=== PATIENT | male | born 1985 | race Hispanic/Latino ===

== ENCOUNTER 2024-12-12 18:15 | Emergency (ER) | payer OTHER ==
[~2024-12-12] VITALS: Ht 177.8 cm; Wt 95.7 kg
--- NOTE | 2024-12-12 18:48 | EKG ---
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
[2024-12-12 18:49] LABS: BASOPHILS # (AUTO) 0.06 K/uL (0.00-0.20); BASOPHILS % (AUTO) 0.7 % (0.0-5.0); EOSINOPHILS # (AUTO) 0.15 K/uL (0.00-0.70); EOSINOPHILS % (AUTO) 1.8 % (0.0-8.0); HEMATOCRIT 48.5 % (42-54); IMMATURE GRANULOCYTE ABSOLUTE 0.02 K/uL (0-1); LYMPHOCYTES # (AUTO) 2.1 K/uL (1.0-4.8); LYMPHOCYTES % (AUTO) 24.2 % (21.0-51.0); MEAN CORPUSCULAR HEMOGLOBIN 29.2 pg (27.0-33.0); MEAN CORPUSCULAR HGB CONC 33.6 g/dL (32.0-36.0); MEAN CORPUSCULAR VOLUME 86.8 fL (79-99); MONOCYTES # (AUTO) 0.5 K/uL (0.1-1.0); MONOCYTES % (AUTO) 6.1 % (3.0-13.0); NEUTROPHILS # (AUTO) 5.7 K/uL (1.8-7.7); PLATELET COUNT (AUTO) 322 K/uL (130-400); RED BLOOD CELL COUNT(AUTO) 5.59 MIL/uL (4.50-6.20); RED CELL DISTRIBUTION WIDTH 12.2 % (11.0-15.5); WHITE BLOOD COUNT (AUTO) 8.6 K/uL (4.8-10.8)
--- NOTE | 2024-12-12 18:53 | HMCIMG ---
Exam Type: CHEST 1VW Clinical Information: CHEST PAIN Comparison: None Findings: The lungs are clear of infiltrates. The heart is normal in size. The bony and soft tissue structures of the chest are unremarkable. Impression: Clear lungs.
[2024-12-12 18:55] LABS: APPEARANCE,URINE CLEAR (CLEAR); BILIRUBIN,URINE NEGATIVE (NEGATIVE); COLOR,URINE YELLOW (YELLOW); GLUCOSE, URINE (UA) NEGATIVE (NEGATIVE); KETONES,URINE NEGATIVE (NEGATIVE); LEUKOCYTE ESTERASE ,URINE NEGATIVE Leu/uL (NEGATIVE); NITRATE,URINE NEGATIVE (NEGATIVE); OCCULT BLOOD,URINE NEGATIVE (NEGATIVE); PH,URINE 6.5 (5.0-8.0); PROTEIN,URINE 10 mg/dL (NEGATIVE); UROBILINOGEN,URINE 0.2 mg/dL (0.2-1.0)
[2024-12-12 18:56] LABS: ADD UA MICROSCOPIC YES; MUCUS,URINE FEW LPF (None Seen); RBC,URINE 0-1 /HPF (0-1); WBC,URINE 0-1 /HPF (0-1)
[2024-12-12 19:01] LABS: CREATININE 1.2 mg/dL (0.5-1.3); POTASSIUM 3.9 mmol/L (3.5-5.1)
[2024-12-12 19:01] LABS: AMPHET/METH SCREEN,URINE NEGATIVE (NEGATIVE); BARBITURATE SCREEN, URINE NEGATIVE (NEGATIVE); BENZODIAZEPINES SCREEN,URINE NEGATIVE (NEGATIVE); CANNABINOID SCREEN,URINE NEGATIVE (NEGATIVE); COCAINE SCREEN,URINE NEGATIVE (NEGATIVE); OPIATE SCREEN,URINE NEGATIVE (NEGATIVE); PHENCYCLIDINE SCREEN,URINE NEGATIVE (NEGATIVE)
[2024-12-12 19:25] LABS: B-TYPE NATRIURETIC PEPTIDE 8 pg/mL (0-100)
[2024-12-12] MEDS: ASPIRIN 81MG CHEW TAB PO STA (19:49)
[2024-12-12] MEDS: hydrOXYzine 50MG VIAL 50 MG/ML VIAL IM STA (19:49)
[2024-12-12] MEDS ORDERED: HYDR-3421 PO (21:19)
--- NOTE | 2024-12-12 21:19 | ERN ---
ED Note History of Present Illness Stated Complaint: CHEST PRESSURE, POSTERIOR NECK PRESSURE Chief Complaint: Chest Pain Time Seen by MD: 18:17 Time Seen by Midlevel: 18:20 Dictation: 39-YEAR-OLD FEMALE WITH NO PAST MEDICAL HISTORY COMING IN WITH COMPLAINTS OF SENSE OF PRESSURE AND PALPITATIONS. PATIENT STATES IT HAS BEEN GOING ON FOR TWO MONTHS INTERMITTENTLY. HAS NOT APPOINTMENT WITH THE MAINTENANCE PLANNING CLERK ON SATURDAY. PATIENT ALSO THINKS THIS COULD BE ANXIETY. Allergies: Coded Allergies: No Known Allergies (Unverified Allergy, Unknown, 12/12/24) Past Medical History Past Medical History: No Pertinent History Surgical History: None Review of System Dictation CONSTITUTIONAL: NEGATIVE FOR FEVER,CHILLS, AND WEIGHT LOSS EYES: NEGATIVE FOR INJURY, PAIN,REDNESS, AND DISCHARGE ENT: NEGATIVE FOR INJURY,PAIN OR SWELLING CARDIOVASCULAR: NEGATIVE FOR CHEST PAIN, PALPITATIONS, AND EDEMA RESPIRATORY: NEGATIVE FOR SHORTNESS OF BREATH, COUGH, AND WHEEZING, ABDOMEN/GI: NEGATIVE FOR ABDOMINAL PAIN, NAUSEA, VOMITING, DIARRHEA, AND CONSTIPATION BACK: NEGATIVE FOR INJURY AND PAIN : NEGATIVE FOR INJURY, BLEEDING AND DISCHARGE MS/EXTREMITY: NEGATIVE FOR INJURY AND DEFORMITY SKIN: NEGATIVE FOR RASH, AND DISCOLORATION NEURO: NEGATIVE FOR HEADACHE, WEAKNESS, NUMBNESS, TINGLING, AND SEIZURE PSYCH: NEGATIVE FOR SUICIDE IDEATION, HOMICIDAL IDEATION, AND HALLUCINATIONS Review of Systems: was completed Initial Vital Sign VS Vital Signs Date Time Temp Pulse Resp B/P (MAP) Pulse Ox O2 Delivery O2 Flow Rate FiO2 12/12/24 18:17 98.4 67 14 115/81 97 Room Air 0 12/12/24 20:16 21 Physical Exam Dictation GENERAL: AWAKE, ALERT, NAD HEAD/FACE: NORMOCEPHALIC, ATRAUMATIC EYES: PERRL, EOMI, VISION AT BASELINE ENT: ORAL CAVITY CLEAR, TMS CLEAR, NO SIGNS OF INFECTION NECK: TRACHEA MIDLINE, SUPPLE, NO NUCHAL RIGIDITY CARDIOVASCULAR: RRR, NORMAL S1/S2, NO MRGS, NO JVD RESPIRATORY: CTAB, NO RESPIRATORY DISTRESS, NO RALES OR WHEEZES ABDOMEN: SOFT, NON-TENDER, NON-DISTENDED, NORMAL BOWEL SOUNDS, NO GUARDING OR REBOUND. SKIN: WARM, DRY, NORMAL TURGOR, NO RASH MS/EXTREMITY: PULSES EQUAL, NO CYANOSIS, NEUROVASCULAR INTACT, FROM NEURO: COAX4, GCS 15, STRENGTH 5/5, CN 2-12 INTACT, NORMAL CEREBELLAR EXAM, NORMAL GAIT, PSYCH: NORMAL BEHAVIOR, MOOD, AND AFFECT NORMAL Results (Laboratory/Radiology) Laboratory/Radiology Laboratory Tests Test 12/12/24 18:40 12/12/24 18:41 Urine Color YELLOW (YELLOW) Urine Appearance CLEAR (CLEAR) Urine pH 6.5 (5.0-8.0) Urine Specific [place] 1.025 (1.001-1.031) Urine Protein 10 mg/dL (NEGATIVE) H Urine Glucose (UA) NEGATIVE mg/dL (NEGATIVE) Urine Ketones NEGATIVE mg/dL (NEGATIVE) Urine Occult Blood NEGATIVE (NEGATIVE) Urine Nitrate NEGATIVE (NEGATIVE) Urine Bilirubin NEGATIVE mg/dL (NEGATIVE) Urine Urobilinogen 0.2 mg/dL (0.2-1.0) Urine Leukocyte Esterase NEGATIVE Ashley/uL Urine RBC 0-1 /HPF (0-1) Urine WBC 0-1 /HPF (0-1) Urine Bacteria None /HPF (None Seen) Urine Opiates Screen NEGATIVE (NEGATIVE) Urine Barbiturates Screen NEGATIVE (NEGATIVE) Urine Phencyclidine Screen NEGATIVE (NEGATIVE) Urine Amphetamines Screen NEGATIVE (NEGATIVE) Urine Benzodiazepines Screen NEGATIVE (NEGATIVE) Urine Cocaine Screen NEGATIVE (NEGATIVE) Urine Marijuana (THC) Screen NEGATIVE (NEGATIVE) White Blood Count 8.6 K/uL (4.8-10.8) Red Blood Count 5.59 MIL/uL (4.50-6.20) Hemoglobin 16.3 g/dL (14.0-18.0) Hematocrit 48.5 % (42-54) Mean Corpuscular Volume 86.8 fL (79-99) Mean Corpuscular Hemoglobin 29.2 pg (27.0-33.0) Mean Corpuscular Hemoglobin Concent 33.6 g/dL (32.0-36.0) Red Cell Distribution Width 12.2 % (11.0-15.5) Platelet Count 322 K/uL (130-400) Mean Platelet Volume 8.9 fL (7.5-10.5) Immature Granulocyte % (Auto) 0.2 % (0-1) Neutrophils (%) (Auto) 67.0 % (40.0-77.0) Lymphocytes (%) (Auto) 24.2 % (21.0-51.0) Monocytes (%) (Auto) 6.1 % (3.0-13.0) Eosinophils (%) (Auto) 1.8 % (0.0-8.0) Basophils (%) (Auto) 0.7 % (0.0-5.0) Neutrophils # (Auto) 5.7 K/uL (1.8-7.7) Lymphocytes # (Auto) 2.1 K/uL (1.0-4.8) Monocytes # (Auto) 0.5 K/uL (0.1-1.0) Eosinophils # (Auto) 0.15 K/uL (0.00-0.70) Basophils # (Auto) 0.06 K/uL (0.00-0.20) Absolute Immature Granulocyte (auto 0.02 K/uL (0-1) Nucleated Red Blood Cells 0.0 % (0.0-0.19) Sodium Level 141 mmol/L (136-145) Potassium Level 3.9 mmol/L (3.5-5.1) Chloride Level 105 mmol/L (101-111) Carbon Dioxide Level 30 mmol/L (21-32) Blood Urea Nitrogen 15 mg/dL (7-18) Creatinine 1.2 mg/dL (0.5-1.3) Glomerular Filtration Rate Calc 78 mL/min (>90) Random Glucose 91 mg/dL (70-105) Total Calcium 9.3 mg/dL (8.5-10.1) Total Creatine Kinase 33 U/L (21-232) Troponin I High Sensitivity 4.5 ng/L (4-75) B-Type Natriuretic Peptide 8 pg/mL (0-100) Labs Reviewed?: Yes EKG Comment: EKGS DONE AT 6:12 P.M., SINUS RHYTHM AT 70. NO STEMI INTERPRETED BY ER MD ED Course ED Course Orders Procedure Category Date Status Time Vital Signs Per CPOE 12/12/24 Transmitted Routine 18:26 B-Type Natriuretic LAB 12/12/24 Complete Peptide 18:26 Chest 1vw RAD 12/12/24 Resulted 18:26 12 Lead Ekg Tracing- EKG 12/12/24 Complete Technical 18:26 Oxygen By Nc/Pulse Ox CPOE 12/12/24 Transmitted 18:26 Maintain Iv CPOE 12/12/24 Transmitted 18:26 Iv Insertion CPOE 12/12/24 Transmitted 18:26 Cardiac Monitoring CPOE 12/12/24 Transmitted 18:26 Pulse Oximetry With CPOE 12/12/24 Transmitted Vs And Prn 18:26 Cbc With Differential LAB 12/12/24 Complete 18:26 Activity: Br W/Brp CPOE 12/12/24 Transmitted With Assist 18:26 Urinalysis Profile LAB 12/12/24 Complete 18:26 Basic Metabolic Panel LAB 12/12/24 Complete 18:26 Aspirin 81mg Chew Tab PHA 12/12/24 Complete (Aspirin 81mg Chew 18:30 Cardiac Panel LAB 12/12/24 Complete 18:26 Drug Screen Urine LAB 12/12/24 Complete 18:26 Hydroxyzine 50mg Vial PHA 12/12/24 Complete (Atarax 50mg Inj) 18:54 Current Medications Medications (Trade) Dose Ordered Sig/Drew Route PRN Reason Start Time Stop Time Status Last Admin Dose Admin Aspirin (Aspirin 81mg Chew Tab) 324 mg ONCE STAT PO 12/12/24 18:30 12/12/24 18:33 DC 12/12/24 19:49 Hydroxyzine HCl (ATArax 50MG INJ) 25 mg ONCE STAT IM 12/12/24 18:54 12/12/24 18:57 DC 12/12/24 19:49 Vital Signs Date Time Temp Pulse Resp B/P (MAP) Pulse Ox O2 Delivery O2 Flow Rate FiO2 12/12/24 20:16 98.6 56 17 113/64 99 Room Air* 0 21 12/12/24 18:17 98.4 67 14 115/81 97 Room Air 0 HEART Score Response (Comments) Value History: Low suspicion (0) 0 EKG: Normal 0 Age: < 45yrs (0) 0 Risk Factors: No known risk factors (0) 0 Initial Troponin: Normal limit (0) 0 Total 0 Medical Decision Making MDM MDM: 39-YEAR-OLD FEMALE WITH NO PAST MEDICAL HISTORY COMING IN WITH COMPLAINTS OF SENSE OF PRESSURE AND PALPITATIONS. PATIENT STATES IT HAS BEEN GOING ON FOR TWO MONTHS INTERMITTENTLY. HAS NOT APPOINTMENT WITH THE MAINTENANCE PLANNING CLERK ON SATURDAY. PATIENT ALSO THINKS THIS COULD BE ANXIETY. BLOOD WORK UNREMARKABLE. EKGS DOES NOT SHOW ANY ST ELEVATIONS OR DYSRHYTHMIAS. HEART SCORE IS 0. PATIENT STATES HE HAS BEEN TAKING IBUPROFEN DAILY TO HELP WITH HIS PAIN AND HAD HELPED BUT TODAY HE DID NOT TAKE IT AND BEGAN WITH THE PAIN AGAIN. AFTER GIVING HYDROXYZINE PATIENT STATES HE FEELS MUCH BETTER. WE WILL PRESCRIBE ATIVAN TO TAKE HOME AND HAVE PATIENT CONTINUE WITH HIS FOLLOW UP WITH HIS MAINTENANCE PLANNING CLERK ON SATURDAY. DIFFERENTIAL DIAGNOSIS: ACS, ANXIETY, ELECTROLYTE ABNORMALITY COSTOCHONDRITIS RATIONALE: TESTS CONSIDERED AND ORDERED SECONDARY TO SHARED DECISION MAKING INCLUDE: PREVIOUS OUTSIDE RECORDS REVIEWED: OLD ER VISITS. RISK OF COMPLICATION AND/OR MORBIDITY OR MORTALITY OF PATIENT MANAGEMENT: NONE MEDICATIONS-PER MEDICATION RECONCILIATION NEED FOR HOSPITALIZATION: PATIENT DOES NOT MEET CRITERIA FOR HOSPITALIZATION. NEED FOR EMERGENCY MAJOR/MINOR SURGERY: NO THERE ARE NO SOCIAL CONCERNS WITH THIS PATIENT. PRESCRIPTION DRUG MANAGEMENT PRESCRIPTIONS WILL INCLUDE SYMPTOMATIC CARE PATIENT'S PRIOR EXTERNAL MEDICAL RECORDS FROM OTHER ER VISITS WERE REVIEWED BY ME INDICATED. PRIOR TESTING AND RESULTS FROM PREVIOUS VISITS WERE REVIEWED. PRIOR TESTS WERE TAKEN INTO ACCOUNT WITH MEDICAL DECISION MAKING AND RESOURCE UTILIZATION, INDEPENDENT HISTORIAN/HISTORIANS WERE USED TO OBTAIN COMPLETE MEDICAL HISTORY. I INDEPENDENTLY INTERPRETED THE TEST THAT WERE PERFORMED, RESULTS WERE REVIEWED BY ME AND CONSIDERED FINDINGS ON RADIOLOGY IF ORDERED. MEDICAL MANAGEMENT AND EXAMINATION INTERPRETATION DISCUSSIONS WERE HAD BY ME WITH OTHER QUALIFIED HEALTHCARE PROFESSIONALS INDICATED FOR THE PATIENT'S CARE. DX & DISP Disposition: Discharge Departure Impression: Primary Impression: Chest pain Condition: Stable Scripts Hydroxyzine HCl (Hydroxyzine HCl) 25 Mg Tablet 1 TAB PO BID for anxiety for 10 Days, #20 TAB 0 Refills Prov: YAHAIRA SIMON COPY MACHINE OPERATOR 12/12/24 Additional Instructions: FOLLOW UP WITH THE MAINTENANCE PLANNING CLERK SCHEDULED ON SATURDAY. RETURN TO THE HOSPITAL IF YOU HAVE WORSENING SYMPTOMS. Referrals: DIMAS AVILA (PCP) Time of Disposition: 21:18 I have reviewed the case, and I agree with, Diagnosis and Plan YAHAIRA SIMON NP December 12, 2024 21:19
[2024-12-12 21:30] VITALS: BP 115/57; PULSE 55; RESP 18; TEMP 98.6; O2SAT 100
== END 2024-12-12 21:31 | disposition home or self-care (01) ==
LOC: EDH 18:15
DX: R07.89 Other chest pain (principal); F41.9 Anxiety disorder, unspecified; Z79.899 Other long term (current) drug therapy
CPT/HCPCS: 99285; 71045; 82550; 84484; 80048; 83880; 80305; 85025; 36415; 96372; 93005; 81001; J3410